=== PATIENT | female | born 1945 | race Caucasian/White ===

== ENCOUNTER → 2024-02-20 14:58 | Outpatient (REF) | payer MEDICARE, OTHER, SELFPAY | LOC: RCS 14:58 | PROVIDERS: ATTENDING PHYSICIAN Physician Assistant | DX: I35.0 Nonrheumatic aortic (valve) stenosis (principal); R06.02 Shortness of breath | CPT/HCPCS: 93306 ==

== ENCOUNTER 2024-02-26 10:14 | Emergency (ER) | payer MEDICARE, OTHER, SELFPAY ==
[2024-02-26 10:27] VITALS: BP 162/86
[2024-02-26 11:39] VITALS: BMI 27.0
[2024-02-26 12:00] VITALS: BP 154/68
[2024-02-26 12:12] LABS: ALT (SGPT) 30 U/L (0-35); AST (SGOT) 28 U/L (14-36); Albumin 4.1 g/dl (3.5-5.0); Alkaline Phosphatase 122 U/L (38-126); Blood Urea Nitrogen 15 mg/dl (7-17); Calcium 9.9 mg/dl (8.4-10.2); Carbon Dioxide 24 mmol/L (22-30); Chloride 107 mmol/L (98-107); Estimated Creatinine Clearance 79 ml/min; Glucose 119 mg/dl (70-99); Potassium 4.4 mmol/L (3.5-5.1); Sodium 141 mmol/L (135-145); Total Bilirubin 0.7 mg/dl (0.2-1.3); Total Protein 7.1 g/dl (6.3-8.2); eGFR > 60.00
[2024-02-26 12:16] LABS: % Eosinophils 2.2 % (0-6); % Immature Granulocytes 0.5 % (0-0.5); % Lymphocytes 10.6 % (20.5-51.1); % Monocytes 8.3 % (1.7-9.3); % Neutrophils 77.4 % (42.2-75.2); Absolute Basophils 0.1 10^3/uL (0-0.2); Absolute Eosinophils 0.2 10^3/uL (0-0.7); Absolute Lymphocytes 0.8 10^3/uL (1.2-3.4); Absolute Monocytes 0.7 10^3/uL (0.1-0.6); Absolute Neutrophils 6.1 10^3/uL (1.4-6.5); Hematocrit 38.1 % (37.0-47.0); Hemoglobin 13.4 g/dL (12.0-16.0); Mean Corp Hgb Conc. 35.2 g/dL (33.0-37.0); Mean Corpuscular Volume 88.2 fL (81.0-99.0); Mean Platelet Volume 10.8 fL (7.4-10.4); Nucleated Red Blood Cells % 0 %; Platelet Count 301 10^3/uL (130-400); Red Blood Cell Count 4.32 10^6/uL (4.20-5.40); White Blood Cell Count 7.9 10^3/uL (4.8-10.8)
[2024-02-26 14:41] LABS: NT-proBNP 66.1 pg/ml; Troponin I < 0.012 ng/ml
--- NOTE | 2024-02-26 15:17 | ED.GENMED ---
History of Present Illness
General
Chief Complaint: Weakness
Source: patient
Exam Limitations: none
Time Seen by Provider: 02/26/24 11:48
Nursing documentation reviewed up to this point in time: agreed with
History of Present Illness
History of Present Illness:
78-year-old female with past medical history of hypertension and Graves' disease presenting to the emergency department today with concerns of diagnosis of pneumonia from 5 days ago started on doxycycline has been taking medication not feeling much
better feels weak and tired feels some mild shortness of breath. Initially started with upper respiratory symptoms cough sneezing sore throat subjective fevers and chills no ongoing fevers.
Past History
Past History
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
Social History
Tobacco: Non-smoker
Alcohol: Occasional
Drug: None
Personal:
Living: with family
Employment: Retired
Family History
Family History: Hypertension
Review of Systems
Review of Systems
Allergies reviewed?: Yes
All Other Systems: ROS reviewed and negative except as documented in HPI and ROS
Phy Exam
Physical Exam
Physical Exam:
GENERAL: Alert , in no apparent distress
EYE: pupils equal and reactive
NECK: Supple, no significant adenopathy.
ENT: o/p clr, mmm.
CARDIAC: Pansystolic murmur regular rate and rhythm .
LUNGS: Clear breath sounds bilaterally, no acute respiratory distress, no wheezes/rales/rhonchi
ABDOMEN: Soft, without focal tenderness, no r/g, no cvat
NEUROLOGICAL: Alert and oriented, no focal neuro deficits
SKIN: Warm and dry, skin intact.
MUSCULOSKELETAL: No edema, well perfused.
PSYCH: Normal and appropriate interaction.
Course
Orders/Labs/Results
Orders:
Orders
02/26/24 11:24
EKG [Electrocardiogram (*1)] Urgent
Reason for Study: Fatigue / Weakness
EKG- Treatment ONCE
02/26/24 11:40
Chest [CR Chest - 2 Views ] Urgent
Comment:
Reason For Exam: cough
02/26/24 11:42
CBC/With Diff [Complete Blood Count/With Diff] Urgent
CMP [Comprehensive Metabolic Panel] Urgent
02/26/24 13:09
BNP [NT-proBNP] Urgent
Troponin I Urgent
Abnormal Lab Results
02/26/24
11:42
MPV 10.8 H fL
(7.4-10.4)
Absolute Lymphs (auto) 0.8 L 10^3/uL
(1.2-3.4)
Absolute Monos (auto) 0.7 H 10^3/uL
(0.1-0.6)
Neutrophils % 77.4 H %
(42.2-75.2)
Lymphocytes % 10.6 L %
(20.5-51.1)
Glucose 119 H mg/dl
(70-99)
02/26/24 11:42
02/26/24 11:42
Vital Signs
Initial and Last Documented VS:
Initial Vital Signs
Temp Pulse Resp BP Pulse Ox
97.5 F 69 16 162/86 98
02/26/24 10:27 02/26/24 10:27 02/26/24 10:27 02/26/24 10:27 02/26/24 10:27
Last Documented Vital Signs
Temp Pulse Resp BP Pulse Ox
97.5 F 71 20 154/68 96
02/26/24 10:27 02/26/24 15:00 02/26/24 15:00 02/26/24 12:00 02/26/24 15:00
MDM/Problems Addressed
MDM/Problems Addressed:
78-year-old female presenting to the emergency department today with concerns of ongoing generalized weakness fatigue upper respiratory symptoms over the past 5 days or so. Diagnosed with pneumonia 5 days ago started on doxycycline has been taking
this medication without relief. Upon arrival vital signs are normal patient no distress normal pulse ox normal heart rate normal respiratory rate no history of blood clots leg swelling recent trauma surgery immobilization. Labs here unremarkable
troponin negative EKG normal chest x-ray showing potential small amount of atelectasis but no evidence of pneumonia. Patient without signs of any emergent pathology advised for close outpatient follow-up. Return precautions given.
*Critical Care Note
Total Time (30-74mins, 75-104mins- exclusive of procedures): Not Applicable
ED Attending Note
-
Portions of this chart may have been created with voice recognition software.� Occasional wrong word or��sound alike� substitutions may have occurred due to the inherent limitations of voice recognition software.
Discharge Plan
Departure
Patient Disposition: Home (Routine Discharge)
Date of Disposition: 02/26/24
Time of Disposition: 15:20
Patient with high blood pressure during this ER visit?: No
Condition: Good
Covid-19: Not Applicable
Discharge Problem:
Fatigue, Cough
Instructions: Generalized Weakness (DC)
Prescriptions:
No Action
ascorbic acid (vitamin C) [Vitamin C] 500 MG tablet
500 mg PO QID Qty: 60 0RF
doxycycline hyclate 100 mg Capsule
100 mg PO BID
aspirin 81 mg Tablet,Delayed Release (Dr/Ec)
81 mg PO DAILY
prednisolone acetate 1 % Drops,Suspension
1 drp BOTH EYES DAILY
sertraline 25 mg Tablet
25 mg PO DAILY
Fruit and Vegetable Daily 5-6-150 mg Capsule
2 cap PO BID
cholecalciferol (vitamin D3) [Vitamin D3] 25 mcg (1,000 unit) Tablet
25 mcg PO DAILY
cranberry 450 mg Tablet
450 mg PO DAILY
coQ10 (ubiquinol) 100 mg Capsule
100 mg PO DAILY
Liver Complex 250-250 mg Tablet
1 tab PO DAILY
atorvastatin 40 MG tablet
40 mg PO HS
Referrals:
Flaco Hill MD [Family Provider] -
Activity Restrictions/Additional Instructions:
You came to the emergency department today with concerns of ongoing symptoms over the past few days. Here you had a reassuring assessment with normal labs chest x-ray and EKG. Please have close with the primary care doctor within 1 week. Return
to the emergency department for any worsening, new or concerning symptoms.
Interventions
Interventions:
*Risk Screen - Suicide Last Done: 02/26/24 11:47
*General Assessment Last Done: 02/26/24 11:47
*Neglect/Abuse Screening Last Done: 02/26/24 11:47
ED- Fall Risk Assessment Last Done: 02/26/24 11:47
ED- Cardiac Assessment Last Done: 02/26/24 11:47
ED- Neurological Assessment Last Done: 02/26/24 11:47
ED- Pulmonary Assessment Last Done: 02/26/24 11:47
Discharge Date and Time
Print Language: NICARAGU[place]
== END 2024-02-26 15:57 | disposition home or self-care (01) ==
LOC: EMR 10:14
PROVIDERS: Physician Assistant; EMERGENCY PHYSICIAN Emergency Medicine; FAMILY PHYSICIAN Family Medicine
DX: R53.83 Other fatigue (principal); R05.9 Cough, unspecified; I10 Essential (primary) hypertension
CPT/HCPCS: 99285; 71046; 80053; 83880; 84484; 85025; 93005

== ENCOUNTER → 2024-03-12 07:48 | Outpatient (REF) | payer MEDICARE, OTHER, SELFPAY | LOC: RAD 07:48 | PROVIDERS: ATTENDING PHYSICIAN Physician Assistant | DX: I35.0 Nonrheumatic aortic (valve) stenosis (principal); R06.02 Shortness of breath | CPT/HCPCS: 93880 ==

== ENCOUNTER → 2024-03-21 14:05 | Outpatient (REF) | payer MEDICARE, OTHER, SELFPAY | LOC: RCS 14:05 | PROVIDERS: ATTENDING PHYSICIAN Internal Medicine Cardiovascular Disease; FAMILY PHYSICIAN Family Medicine | DX: R06.09 Other forms of dyspnea (principal) | CPT/HCPCS: 93017 ==

== ENCOUNTER → 2024-09-04 11:07 | Outpatient (REF) | payer MEDICARE, OTHER, SELFPAY | LOC: WDC 11:07 | PROVIDERS: ATTENDING PHYSICIAN Physician Assistant | DX: Z12.31 Encounter for screening mammogram for malignant neoplasm of breast (principal) | CPT/HCPCS: 77063; 77067 ==

== ENCOUNTER → 2024-11-19 15:46 | Outpatient (REF) | payer MEDICARE, OTHER, SELFPAY | LOC: RCS 15:46 | PROVIDERS: ATTENDING PHYSICIAN Student in an Organized Health Care Education/Training Program; FAMILY PHYSICIAN Family Medicine | DX: I35.0 Nonrheumatic aortic (valve) stenosis (principal) | CPT/HCPCS: 93306 ==